=== PATIENT | male | born 1945 | race Caucasian/White ===

== ENCOUNTER 2017-02-04 13:22 | Day surgery (SDC) | payer MEDICARE, OTHER ==
[2017-02-04] VITALS (7 sets, daily range): BP systolic 121–156; BP diastolic 62–89; PULSE 81–105; TEMP 97.7–98.3
[~2017-02-04] VITALS: Ht 213 cm; Wt 96.8 kg
[~2017-02-04 13:22] MED LIST: CARDI-OMEGA1000 MG PO; CIPRO 500MG TA500 MG PO; GLUCOSAMINE & C1 CA1 PO; NORCO 325 MG-51 TAB PO; PYRIDIUM200 M1 PO
[2017-02-05 01:35] VITALS: BP 104/53; PULSE 78; TEMP 97.9
[2017-02-05 06:08] VITALS: BP 113/71; PULSE 82; TEMP 97.8
== END 2017-02-05 08:15 | disposition home or self-care (01) ==
LOC: SDCO 13:22 → SURG 17:55 → SDCO 02-05 08:15
DX: D09.0 Carcinoma in situ of bladder (principal); N30.20 Other chronic cystitis without hematuria; Z85.51 Personal history of malignant neoplasm of bladder; Z87.442 Personal history of urinary calculi
CPT/HCPCS: OP; J0690; J1170; J2405; J2704; J3010; J7120; Q9967

== ENCOUNTER 2017-04-10 10:00 | Outpatient (RCR) | payer MEDICARE, OTHER ==
[2017-03-06 10:26] VITALS: BP 144/76; PULSE 109; TEMP 97.9
[2017-03-13 10:13] VITALS: BP 132/88; PULSE 74; TEMP 97.5
[2017-03-20 10:02] VITALS: BP 143/79; PULSE 91; TEMP 98.2
[2017-03-27 09:56] VITALS: BP 133/68; PULSE 96; TEMP 97.6
[2017-03-27 11:35] VITALS: BP 124/68; PULSE 76; TEMP 97.6
[2017-04-03 10:34] VITALS: BP 11/82; PULSE 97; TEMP 97.6
[~2017-04-10] VITALS: Ht 185.4 cm; Wt 98.0 kg
[~2017-04-10 10:00] MED LIST changes: +CLARITIN 1010 MG/TAB PO
[2017-04-10 13:20] VITALS: BP 137/66; PULSE 73; TEMP 98
== END 2017-04-10 15:11 | disposition home or self-care (01) ==
LOC: EUO 10:00
DX: N32.9 Bladder disorder, unspecified (principal)
CPT/HCPCS: J9031; J9214